=== PATIENT | female | born 1980 | race Caucasian/White ===

== ENCOUNTER 2017-07-19 16:29 | Emergency (ER) | payer OTHER ==
[2017-07-19 16:58] VITALS: BP 144/90; PULSE 88; TEMP 99.1; BMI 25.7
[2017-07-19] MEDS ORDERED: KETOROLAC TROMETHAMINE 60 MG/2 ML VIAL IM ONE (18:09)
[2017-07-19] MEDS ORDERED: KETOROLAC TROMETHAMINE 60 MG/2 ML VIAL ONE (18:13)
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
[2017-07-19] MEDS ORDERED: diazePAM 5 MG TABLET ONE (18:53)
[2017-07-19] MEDS ORDERED: diazePAM 5 MG TABLET PO ONE (19:03)
== END 2017-07-19 19:05 | disposition home or self-care (01) ==
LOC: JERFT 16:29
PROC: 3E0233Z Introduction of Anti-inflammatory into Muscle, Percutaneous Approach (ICD-10-PCS; principal; 2017-07-19)
DX: S16.1XXA Strain of muscle, fascia and tendon at neck level, initial encounter (principal); X58.XXXA Exposure to other specified factors, initial encounter; Y93.89 Activity, other specified; Y92.89 Other specified places as the place of occurrence of the external cause; Y99.8 Other external cause status
CPT/HCPCS: 72050-TC; 99281-25